=== PATIENT | female | born 1955 ===

== ENCOUNTER 2017-03-22 18:34 | Observation (INO) | payer MEDICAID ==
--- NOTE | 2017-03-22 19:01 | ED PDOC ---
HPI: Chest Pain Time Seen by Provider: 03/22/17 18:44 Chief Complaint (Nursing): Chest Pain Chief Complaint (Provider): Chest pain History Per: Patient History/Exam Limitations: no limitations Onset/Duration Of Symptoms: Days (Today) Current Symptoms Are (Timing): Still Present Additional Complaint(s): Chest pain that started suddenly on the right side 2 hrs [employer]. Dyspnea with it. Took 2 ASA at home. No weakness, numbness, tingles, leg pain, nausea, vomit, diarrhea, abd pain, back pain. No dizziness or headache. No long distance travel. No hormone tx. Past Medical History Vital Signs: Last Vital Signs Temp 97.9 F 03/22/17 18:39 Pulse 60 03/22/17 19:17 Resp 16 03/22/17 18:39 BP 130/73 03/22/17 19:17 Pulse Ox 100 03/22/17 19:39 - Medical History PMH: HTN, Hypercholesterolemia - Surgical History Surgical History: Appendectomy, (2) - Family History Family History: States: Unknown Family Hx - Living Arrangements Living Arrangements: With Family - Social History Current smoker - smoking cessation education provided: No Alcohol: None Drugs: Denies - Home Medications Home Medications: Ambulatory Orders Medication Instructions Recorded Ibuprofen [Motrin] 600 mg PO TID 7 Days tab 04/08/16 Cyclobenzaprine [Cyclobenzaprine 10 mg PO Q8 PRN #30 tab 06/30/16 HCl] Naproxen [Naprosyn] 500 mg PO BID PRN #30 tab 06/30/16 - Allergies Allergies/Adverse Reactions: Allergies Allergy/AdvReac Type Severity Reaction Status Date / Time No Known Allergies Allergy Verified 03/22/17 18:39 Review of Systems ROS Statement: Except As Marked, All Systems Reviewed And Found Negative Cardiovascular: Positive for: Chest Pain Respiratory: Positive for: Shortness of Breath Physical Exam - Reviewed Nursing Documentation Reviewed: Yes Vital Signs Reviewed: Yes - Physical Exam Appears: Positive for: Non-toxic, No Acute Distress Head Exam: Positive for: ATRAUMATIC, NORMAL INSPECTION, NORMOCEPHALIC Skin: Positive for: Normal Color, Warm, DRY Eye Exam: Positive for: EOMI, Normal appearance, PERRL ENT: Positive for: Normal ENT Inspection Neck: Positive for: Normal, Painless ROM Cardiovascular/Chest: Positive for: Regular Rate, Rhythm. Negative for: Chest Non Tender (R chest mid tender), Edema Respiratory: Positive for: CNT, Normal Breath Sounds Gastrointestinal/Abdominal: Positive for: Normal Exam, Bowel Sounds, Soft. Negative for: Tenderness Back: Positive for: Normal Inspection. Negative for: L CVA Tenderness Extremity: Positive for: Normal ROM. Negative for: Tenderness, Pedal Edema Neurologic/Psych: Positive for: Alert, Oriented - Laboratory Results Result Diagrams: 03/22/17 19:53 03/22/17 19:54 Interpretation Of Abn Labs: no acute - ECG ECG: Positive for: Interpreted By Me, Viewed By Me ECG Rhythm: Positive for: Normal QRS, Normal ST Segment, Sinus Rhythm O2 Sat by Pulse Oximetry: 100 Pulse Ox Interpretation: Normal - Radiology X-Ray: Interpreted by Me, Viewed By Me X-Ray Interpretation: No Acute Disease - Progress ED Course And Treament: 2052: Stable. Spoke with Dr. Hobbs. Will admit tele obs. Will give further orders when pt. reaches floor. Pain free currently. Disposition - Clinical Impression Clinical Impression: Chest pain - Patient ED Disposition Is Patient to be Admitted: Yes Counseled Patient/Family Regarding: Studies Performed, Diagnosis - Disposition Disposition Time: 20:54 Condition: FAIR - Pt Status Changed To: Hospital Disposition Of: Observation - POA Present On Arrival: None Core Measure Indicators: Chest Pain
[2017-03-22] MEDS ORDERED: Sodium Chloride 0.9% 500 ML IV STA (19:08)
[2017-03-22 19:56] LABS: BASO % 0.5 % (0.0-2.0); EOS # 0.1 K/uL (0.0-0.7); EOS % 1.9 % (0.0-4.0); HEMATOCRIT 36.4 % (34.0-47.0); LYMPH # 1.7 K/uL (1.0-4.3); LYMPH % 31.6 % (20.0-40.0); MEAN CELL VOLUME 87.9 fl (81.0-99.0); MEAN CORPUSCULAR HEMOGLOBIN 29.6 pg (27.0-31.0); MEAN CORPUSCULAR HGB CONC 33.7 g/dL (33.0-37.0); MEAN PLATELET VOLUME 8.9 fl (7.2-11.7); MONO # 0.6 K/uL (0.0-0.8); MONO % 11.1 % (0.0-10.0); NEUT # 2.9 K/uL (1.8-7.0); NEUT % 54.9 % (50.0-75.0); NRBC % 0.3 % (0.0-0.0); RED CELL DISTRIBUTION WIDTH 13.4 % (11.5-14.5); WHITE BLOOD COUNT 5.3 K/uL (4.8-10.8)
[2017-03-22 20:03] LABS: ALKALINE PHOSPHATASE 76 U/L (38-126); ALT/SGPT 35 U/L (9-52); AST/SGOT 28 U/L (14-36); BILIRUBIN,TOTAL 0.2 mg/dl (0.2-1.3); BLOOD UREA NITROGEN 12 mg/dl (7-17); CALCIUM 8.8 mg/dL (8.4-10.2); CARBON DIOXIDE 29 mmol/L (22-30); CHLORIDE 105 mmol/L (98-107); GFR AFRICAN-AMERICAN > 60; GLUCOSE,RANDOM 100 mg/dL (65-105); POTASSIUM 4.1 MMOL/L (3.6-5.0); SODIUM 142 mmol/l (132-148); TOTAL PROTEIN 7.9 G/DL (6.3-8.2)
[2017-03-22 20:54] LABS: PARTIAL THROMBOPLASTIN TIME 29.3 Seconds (25.6-37.1)
[2017-03-23 05:24] VITALS: RESP 18
[2017-03-23 07:01] LABS: HEMATOCRIT 35.9 % (34.0-47.0); MEAN CORPUSCULAR HEMOGLOBIN 29.4 pg (27.0-31.0); MEAN CORPUSCULAR HGB CONC 32.6 g/dL (33.0-37.0); RED CELL DISTRIBUTION WIDTH 13.4 % (11.5-14.5); WHITE BLOOD COUNT 4.8 K/uL (4.8-10.8)
[2017-03-23 07:11] LABS: ALKALINE PHOSPHATASE 73 U/L (38-126); ALT/SGPT 35 U/L (9-52); AST/SGOT 24 U/L (14-36); BILIRUBIN,TOTAL 0.3 mg/dl (0.2-1.3); BLOOD UREA NITROGEN 9 mg/dl (7-17); CALCIUM 8.7 mg/dL (8.4-10.2); CARBON DIOXIDE 29 mmol/L (22-30); CHLORIDE 107 mmol/L (98-107); CHOLESTEROL 171 mg/dL (0-199); GFR AFRICAN-AMERICAN > 60; GLUCOSE,RANDOM 84 mg/dL (65-105); POTASSIUM 3.7 MMOL/L (3.6-5.0); SODIUM 144 mmol/l (132-148); TOTAL PROTEIN 7.3 G/DL (6.3-8.2)
[2017-03-23 07:39] LABS: THYROID STIMULATING HORMONE 1.88 mIU/ML (0.46-4.68)
[2017-03-23] MEDS ORDERED: Enoxaparin 40 mg Syringe SC SCH (09:00)
--- NOTE | 2017-03-23 09:13 | CP.PCM.HP ---
History of Present Illness - History of Present Illness History of Present Illness: Patient seen and examined with Dr. 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 States she has never had pain like this before. No cardiac history. Pain at present is now shoulder/back, non radiating, worse with movement of her shoulder. No chest pain, dyspnea, abdominal pain, nausea or vomiting. PMD: Dr Syed PMH: HTN Medications:Metoprolol Allergies: NKDA Present on Admission - Present on Admission Any Indicators Present on Admission: No Review of Systems - Constitutional Constitutional: absent: Headache, Weakness - EENT Eyes: absent: Blurred Vision, Change in Vision Ears: absent: Ear Pain Nose/Mouth/Throat: absent: Nasal Congestion, Nasal Discharge - Cardiovascular Cardiovascular: absent: Chest Pain, Dyspnea, Edema, Rapid Heart Rate, Slow Heart Rate - Respiratory Respiratory: absent: Cough, Dyspnea - Gastrointestinal Gastrointestinal: absent: Abdominal Pain, Diarrhea, Nausea, Vomiting - Genitourinary Genitourinary: absent: Difficulty Urinating, Dysuria - Musculoskeletal Musculoskeletal: absent: Abnormal Gait Past Patient History - Infectious Disease Hx of Infectious Diseases: None - Past Medical History & Family History Past Medical History?: Yes - Past Social History Smoking Status: Former Smoker - CARDIAC Hx Cardiac Disorders: Yes Hx Hypercholesterolemia: Yes Hx Hypertension: Yes - PULMONARY Hx Respiratory Disorders: No - NEUROLOGICAL Hx Neurological Disorder: No - HEENT Hx HEENT Problems: No - RENAL Hx Chronic Kidney Disease: No - ENDOCRINE/METABOLIC Hx Endocrine Disorders: No - HEMATOLOGICAL/ONCOLOGICAL Hx Blood Disorders: No - INTEGUMENTARY Hx Dermatological Problems: No - MUSCULOSKELETAL/RHEUMATOLOGICAL Hx Musculoskeletal Disorders: No Hx Falls: No - GASTROINTESTINAL Hx Gastrointestinal Disorders: No - GENITOURINARY/GYNECOLOGICAL Hx Genitourinary Disorders: No - PSYCHIATRIC Hx Psychophysiologic Disorder: No Hx Substance Use: No - SURGICAL HISTORY Hx Appendectomy: Yes Hx Section: Yes (x2) - ANESTHESIA Hx Anesthesia: Yes Hx Anesthesia Reactions: No Meds Allergies/Adverse Reactions: Allergies Allergy/AdvReac Type Severity Reaction Status Date / Time No Known Allergies Allergy Verified 03/22/17 18:39 Physical Exam - Constitutional Appears: Well, No Acute Distress - Head Exam Head Exam: ATRAUMATIC, NORMAL INSPECTION, NORMOCEPHALIC - Eye Exam Eye Exam: EOMI, Normal appearance, PERRL - ENT Exam ENT Exam: Mucous Membranes Dry - Neck Exam Neck exam: Positive for: Full Rom - Respiratory Exam Respiratory Exam: Clear to Auscultation Bilateral, NORMAL BREATHING PATTERN. absent: Accessory Muscle Use, Chest Wall Tenderness, Decreased Breath Sounds, Rales, Wheezes, Respiratory Distress - Cardiovascular Exam Cardiovascular Exam: REGULAR RHYTHM, +S1, +S2. absent: Bradycardia, Tachycardia - GI/Abdominal Exam GI & Abdominal Exam: Normal Bowel Sounds, Soft. absent: Diminished Bowel Sounds , Distended, Guarding, Tenderness - Extremities Exam Extremities exam: Negative for: pedal edema Additional comments: right shoulder non tender, full ROM - Back Exam Back exam: muscle spasm, NORMAL INSPECTION Additional comments: right upper back tenderness to palpation - Psychiatric Exam Psychiatric exam: Normal Affect, Normal Mood - Skin Skin Exam: Dry, Intact, Normal Color, Warm Results - Vital Signs Recent Vital Signs: Last Vital Signs Temp 97.7 F 03/23/17 08:24 Pulse 62 03/23/17 08:42 Resp 18 03/23/17 08:24 BP 142/79 03/23/17 08:42 Pulse Ox 100 03/23/17 08:24 - Labs Result Diagrams: 03/23/17 06:00 03/23/17 06:00 Labs: Laboratory Results - last 24 hr 03/22/17 03/22/17 03/22/17 19:53 19:54 20:15 WBC 5.3 RBC 4.14 Hgb 12.2 Hct 36.4 MCV 87.9 MCH 29.6 MCHC 33.7 RDW 13.4 Plt Count 228 MPV 8.9 Neut % (Auto) 54.9 Lymph % (Auto) 31.6 [place] % (Auto) 11.1 H Eos % (Auto) 1.9 Baso % (Auto) 0.5 Neut # 2.9 Lymph # 1.7 [place] # 0.6 Eos # 0.1 Baso # 0.0 PT 11.6 INR 1.0 APTT 29.3 Sodium 142 Potassium 4.1 Chloride 105 Carbon Dioxide 29 Anion Gap 12 BUN 12 Creatinine 0.8 Est GFR ( Amer) > 60 Est GFR (Non-Af Amer) > 60 Random Glucose 100 Calcium 8.8 Total Bilirubin 0.2 AST 28 ALT 35 Alkaline Phosphatase 76 Troponin I < 0.0120 Total Protein 7.9 Albumin 4.0 Globulin 3.9 Albumin/Globulin Ratio 1.0 Triglycerides Cholesterol LDL Cholesterol Direct HDL Cholesterol Vitamin B12 TSH 3rd Generation 03/23/17 03/23/17 06:00 06:00 WBC 4.8 RBC 3.99 Hgb 11.7 L Hct 35.9 MCV 90.0 D MCH 29.4 MCHC 32.6 L RDW 13.4 Plt Count 222 MPV Neut % (Auto) Lymph % (Auto) [place] % (Auto) Eos % (Auto) Baso % (Auto) Neut # Lymph # [place] # Eos # Baso # PT INR APTT Sodium 144 Potassium 3.7 Chloride 107 Carbon Dioxide 29 Anion Gap 12 BUN 9 Creatinine 0.8 Est GFR ( Amer) > 60 Est GFR (Non-Af Amer) > 60 Random Glucose 84 Calcium 8.7 Total Bilirubin 0.3 AST 24 ALT 35 Alkaline Phosphatase 73 Troponin I < 0.0120 Total Protein 7.3 Albumin 3.7 Globulin 3.7 Albumin/Globulin Ratio 1.0 Triglycerides 109 Cholesterol 171 LDL Cholesterol Direct 83 HDL Cholesterol 52 Vitamin B12 291 TSH 3rd Generation 1.88 Assessment & Plan (1) Chest pain Assessment and Plan: 61 year old female with PMH of htn admitted for chest pain rule out ACS. Troponins have been negative, EKG is WNL. Pain is improved, likely due to muscle spasm as pain has localized to her back. Awaiting cardiology evaluation. case d/w Dr. Hobbs Status: Acute (2) Back pain Status: Acute (3) HTN (hypertension) Assessment and Plan: well controlled with home medications Status: Chronic
--- NOTE | 2017-03-23 09:30 | RAD ---
HISTORY: dyspnea COMPARISON: 06/28/2015 FINDINGS: LUNGS: No active pulmonary disease. PLEURA: No significant pleural effusion identified, no pneumothorax apparent. CARDIOVASCULAR: No CHF. Heart is unchanged in size. Aorta is also stable. OSSEOUS STRUCTURES: No significant abnormalities. Mild scoliosis is noted. VISUALIZED UPPER ABDOMEN: Normal. OTHER FINDINGS: None. IMPRESSION: No active disease.
--- NOTE | 2017-03-23 10:59 | CARD ---
APPROVED REPORT EKG Measurement Heart [id number] <Conclusion> Normal sinus rhythm Normal ECG
--- NOTE | 2017-03-23 11:56 | CP.PCM.CON ---
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 States she has never had pain like this before. No cardiac history. Pain at present is now @ right shoulder non radiating, feels much better than when she came in, worse with movement of her shoulder. No chest pain, dyspnea, abdominal pain, nausea or vomiting. Pain is reproducible with palpation EKG: normal Troponin: neg PMH: HTN Medications: Metoprolol Past Patient History - Infectious Disease Hx of Infectious Diseases: None - Past Medical History & Family History Past Medical History?: Yes - Past Social History Smoking Status: Former Smoker - CARDIAC Hx Cardiac Disorders: Yes Hx Hypercholesterolemia: Yes Hx Hypertension: Yes - PULMONARY Hx Respiratory Disorders: No - NEUROLOGICAL Hx Neurological Disorder: No - HEENT Hx HEENT Problems: No - RENAL Hx Chronic Kidney Disease: No - ENDOCRINE/METABOLIC Hx Endocrine Disorders: No - HEMATOLOGICAL/ONCOLOGICAL Hx Blood Disorders: No - INTEGUMENTARY Hx Dermatological Problems: No - MUSCULOSKELETAL/RHEUMATOLOGICAL Hx Musculoskeletal Disorders: No Hx Falls: No - GASTROINTESTINAL Hx Gastrointestinal Disorders: No - GENITOURINARY/GYNECOLOGICAL Hx Genitourinary Disorders: No - PSYCHIATRIC Hx Psychophysiologic Disorder: No Hx Substance Use: No - SURGICAL HISTORY Hx Appendectomy: Yes Hx Section: Yes (x2) - ANESTHESIA Hx Anesthesia: Yes Hx Anesthesia Reactions: No Meds Allergies/Adverse Reactions: Allergies Allergy/AdvReac Type Severity Reaction Status Date / Time No Known Allergies Allergy Verified 03/22/17 18:39 - Medications Medications: Current Medications Acetaminophen (Tylenol 325mg Tab) 650 mg PO Q4 PRN PRN Reason: Pain, Mild (1-3) Last Admin: 03/23/17 10:23 Dose: 650 mg Aspirin (Ecotrin) 81 mg PO DAILY [facility] Last Admin: 03/23/17 08:40 Dose: 81 mg Cyclobenzaprine HCl (Flexeril) 5 mg PO TID PRN PRN Reason: Muscle spasm Enoxaparin Sodium (Lovenox) 40 mg SC DAILY [facility] PRN Reason: Protocol Last Admin: 03/23/17 08:40 Dose: 40 mg Metoprolol Tartrate (Lopressor) 50 mg PO DAILY [facility] Last Admin: 03/23/17 08:42 Dose: 50 mg Physical Exam - Constitutional Appears: Well - Head Exam Head Exam: ATRAUMATIC, NORMAL INSPECTION, NORMOCEPHALIC - Eye Exam Eye Exam: EOMI, Normal appearance, PERRL - ENT Exam ENT Exam: Mucous Membranes Moist, Normal Exam - Neck Exam Neck exam: Positive for: Normal Inspection - Respiratory Exam Respiratory Exam: Clear to Auscultation Bilateral, NORMAL BREATHING PATTERN - Cardiovascular Exam Cardiovascular Exam: REGULAR RHYTHM Results - Vital Signs Recent Vital Signs: Last Vital Signs Temp 97.7 F 03/23/17 08:24 Pulse 66 03/23/17 09:00 Resp 18 03/23/17 08:24 BP 142/79 03/23/17 08:42 Pulse Ox 100 03/23/17 08:24 - Labs Result Diagrams: 03/23/17 06:00 03/23/17 06:00 Labs: Laboratory Results - last 24 hr 03/22/17 03/22/17 03/22/17 19:53 19:54 20:15 WBC 5.3 RBC 4.14 Hgb 12.2 Hct 36.4 MCV 87.9 MCH 29.6 MCHC 33.7 RDW 13.4 Plt Count 228 MPV 8.9 Neut % (Auto) 54.9 Lymph % (Auto) 31.6 [place] % (Auto) 11.1 H Eos % (Auto) 1.9 Baso % (Auto) 0.5 Neut # 2.9 Lymph # 1.7 [place] # 0.6 Eos # 0.1 Baso # 0.0 PT 11.6 INR 1.0 APTT 29.3 Sodium 142 Potassium 4.1 Chloride 105 Carbon Dioxide 29 Anion Gap 12 BUN 12 Creatinine 0.8 Est GFR ( Amer) > 60 Est GFR (Non-Af Amer) > 60 Random Glucose 100 Calcium 8.8 Total Bilirubin 0.2 AST 28 ALT 35 Alkaline Phosphatase 76 Troponin I < 0.0120 Total Protein 7.9 Albumin 4.0 Globulin 3.9 Albumin/Globulin Ratio 1.0 Triglycerides Cholesterol LDL Cholesterol Direct HDL Cholesterol Vitamin B12 TSH 3rd Generation 03/23/17 03/23/17 06:00 06:00 WBC 4.8 RBC 3.99 Hgb 11.7 L Hct 35.9 MCV 90.0 D MCH 29.4 MCHC 32.6 L RDW 13.4 Plt Count 222 MPV Neut % (Auto) Lymph % (Auto) [place] % (Auto) Eos % (Auto) Baso % (Auto) Neut # Lymph # [place] # Eos # Baso # PT INR APTT Sodium 144 Potassium 3.7 Chloride 107 Carbon Dioxide 29 Anion Gap 12 BUN 9 Creatinine 0.8 Est GFR ( Amer) > 60 Est GFR (Non-Af Amer) > 60 Random Glucose 84 Calcium 8.7 Total Bilirubin 0.3 AST 24 ALT 35 Alkaline Phosphatase 73 Troponin I < 0.0120 Total Protein 7.3 Albumin 3.7 Globulin 3.7 Albumin/Globulin Ratio 1.0 Triglycerides 109 Cholesterol 171 LDL Cholesterol Direct 83 HDL Cholesterol 52 Vitamin B12 291 TSH 3rd Generation 1.88 Assessment & Plan (1) Right shoulder pain Assessment and Plan: Pain is not cardiac pt may be discharged Status: Acute (2) HTN (hypertension) Status: Chronic
[2017-03-23 12:39] VITALS: BP 117/74; PULSE 54; TEMP 98; O2SAT 98
== END 2017-03-23 14:04 | disposition home or self-care (01) ==
LOC: H.ER 18:34 → H.ERHOLD 20:54 → H.TEL 22:46
PROVIDERS: ADMIT Internal Medicine; ATTEND Internal Medicine
DX: M25.511 Pain in right shoulder (principal); I10 Essential (primary) hypertension; E78.00 Pure hypercholesterolemia, unspecified; Z87.891 Personal history of nicotine dependence
CPT/HCPCS: 36415; 71010; 80053; 80061; 82607; 84443; 84484; 85025; 85027; 85610; 85730; 93005; 99283; G0378; J1650; J7040

== ENCOUNTER 2018-03-15 12:10 | Emergency (ER) | payer MEDICAID ==
[2018-03-15] MEDS ORDERED: Sodium Chloride 0.9% 1,000 ML IV STA (12:43)
--- NOTE | 2018-03-15 13:18 | RAD ---
Date of service: 03/15/2018 HISTORY: Chest pain COMPARISON: 03/22/2017. TECHNIQUE: Chest PA and lateral FINDINGS: LINES AND TUBES: None. LUNG AND PLEURA: The lungs are well inflated and clear. No pleural effusion or pneumothorax. HEART AND MEDIASTINUM: The heart is not enlarged. No aortic atherosclerotic calcification present. The hilar and mediastinal contours are within normal limits. SKELETAL STRUCTURES: The bony structures are within normal limits for the patient's age. VISUALIZED UPPER ABDOMEN: Normal. OTHER FINDINGS: None. IMPRESSION: No active pulmonary disease.
[2018-03-15 13:36] LABS: BASO % 0.9 % (0.0-2.0); EOS # 0.1 K/uL (0.0-0.7); EOS % 1.8 % (0.0-4.0); HEMOGLOBIN 12.6 g/dL (12.0-16.0); LYMPH # 1.2 K/uL (1.0-4.3); LYMPH % 21.8 % (20.0-40.0); MEAN CELL VOLUME 90.4 fl (81.0-99.0); MEAN CORPUSCULAR HEMOGLOBIN 29.8 pg (27.0-31.0); MEAN PLATELET VOLUME 9.2 fl (7.2-11.7); MONO # 0.5 K/uL (0.0-0.8); MONO % 8.8 % (0.0-10.0); NEUT # 3.7 K/uL (1.8-7.0); NEUT % 66.7 % (50.0-75.0); NRBC % 0.1 % (0.0-0.0); RBC 4.22 Mil/uL (3.80-5.20); RED CELL DISTRIBUTION WIDTH 13.3 % (11.5-14.5); WHITE BLOOD COUNT 5.6 K/uL (4.8-10.8)
[2018-03-15 13:43] LABS: ALBUMIN 4.3 g/dL (3.5-5.0); ALT/SGPT 29 U/L (9-52); AST/SGOT 25 U/L (14-36); BLOOD UREA NITROGEN 12 mg/dl (7-17); CALCIUM 9.7 mg/dL (8.4-10.2); GFR NON-AFRICAN AMERICAN > 60
--- NOTE | 2018-03-15 18:08 | ED PDOC ---
HPI: Headache Time Seen by Provider: 03/15/18 12:19 Chief Complaint (Nursing): Headache Chief Complaint (Provider): Upper back pain History Per: Patient History/Exam Limitations: no limitations Additional Complaint(s): 62 y/o female with history of HTN presents to the ED complaining of pain to her upper back, onset since x2 days ago. Patient states that the pain radiates to her shoulders and arms bilaterally and she has an associated mild headache. She states that pain in worsened with movement and that she has had similar pain in the past. She denies trauma, weakness, numbness, chest pain, or shortness of breath. Past Medical History Reviewed: Historical Data, Nursing Documentation, Vital Signs Vital Signs: Last Vital Signs Temp 98.5 F 03/15/18 12:13 Pulse 71 03/15/18 12:13 Resp 16 03/15/18 12:13 BP 166/93 H 03/15/18 12:13 Pulse Ox 99 03/15/18 12:13 - Medical History PMH: HTN, Hypercholesterolemia Denies: Chronic Kidney Disease - Surgical History Surgical History: Appendectomy, (2) - Family History Family History: States: Unknown Family Hx - Social History Current smoker - smoking cessation education provided: No - Home Medications Home Medications: Ambulatory Orders Medication Instructions Recorded Metoprolol Tartrate [Lopressor] 25 mg PO DAILY 03/22/17 Cyclobenzaprine [Cyclobenzaprine 10 mg PO Q8 PRN #9 tab 03/15/18 HCl] Ibuprofen [Motrin Tab] 600 mg PO Q6 PRN #15 tab 03/15/18 - Allergies Allergies/Adverse Reactions: Allergies Allergy/AdvReac Type Severity Reaction Status Date / Time No Known Allergies Allergy Verified 03/22/17 18:39 Review of Systems ROS Statement: Except As Marked, All Systems Reviewed And Found Negative Cardiovascular: Negative for: Chest Pain Respiratory: Negative for: Shortness of Breath Musculoskeletal: Positive for: Shoulder Pain (bilaterally), Back Pain Neurological: Positive for: Headache. Negative for: Weakness, Numbness Physical Exam - Reviewed Nursing Documentation Reviewed: Yes Vital Signs Reviewed: Yes - Physical Exam Appears: Positive for: Well, Non-toxic, No Acute Distress Head Exam: Positive for: ATRAUMATIC, NORMAL INSPECTION, NORMOCEPHALIC Skin: Positive for: Normal Color, Warm, DRY Eye Exam: Positive for: EOMI, Normal appearance, PERRL Neck: Positive for: Normal, Painless ROM Cardiovascular/Chest: Positive for: Regular Rate, Rhythm. Negative for: Murmur Respiratory: Positive for: Normal Breath Sounds. Negative for: Respiratory Distress Gastrointestinal/Abdominal: Positive for: Normal Exam, Soft. Negative for: Tenderness Back: Negative for: Normal Inspection (Hypertonicity to upper thoracic region) Extremity: Positive for: Normal ROM. 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 Negative for: Motor/Sensory Deficits - Laboratory Results Result Diagrams: 03/15/18 13:20 03/15/18 13:20 - ECG O2 Sat by Pulse Oximetry: 99 (RA) Pulse Ox Interpretation: Normal Medical Decision Making Medical Decision Making: Time: 12:43 Initial Impression: back pain with mild headache Initial Plan: * CMP * Troponin * CBC w/ diff * CXR * IV Fluids * Reglan * Toradol 17:25 Blood work, CXR and labs are all unremarkable. Patient was given Reglan and Toradol with resolution of symptoms. 17:25 Patient's past charts were reviewed. She was admitted a year ago for similiar symptoms and a chief controller saw her who determined it was non-cardiac. 17:30 Patient will be discharged with Motrin and Flexeril. Scribe Attestation: Documented by Leon Cr, acting as a scribe for Emanuel Hunt MD. Provider Scribe Attestation: All medical record entries made by the Scribe were at my direction and personally dictated by me. I have reviewed the chart and agree that the record accurately reflects my personal performance of the history, physical exam, medical decision making, and the department course for this patient. I have also personally directed, reviewed, and agree with the discharge Disposition - Clinical Impression Clinical Impression: Headache, Back pain - Disposition Referrals: Aileen Groves MD [Family Provider] - Disposition Time: 17:30 Condition: STABLE Additional Instructions: Return to ER for any worse or new symptoms. Prescriptions: Cyclobenzaprine [Cyclobenzaprine HCl] 10 mg PO Q8 PRN #9 tab PRN Reason: Muscle Spasm Ibuprofen [Motrin Tab] 600 mg PO Q6 PRN #15 tab PRN Reason: Pain, Moderate (4-7) Instructions: Upper Back Pain, Headache, Adult (DC) Forms: [employer] (Sri Lankan) Print Language: TRINIDADIAN
[2018-03-15 18:30] VITALS: BP 164/84; PULSE 74; RESP 18; TEMP 98.2; O2SAT 100
== END 2018-03-15 18:25 | disposition home or self-care (01) ==
LOC: H.ER 12:10
DX: M54.9 Dorsalgia, unspecified (principal); R51 Headache
CPT/HCPCS: 71046; 80053; 84484; 85025; 96374; 96375; 99285; J1885; J2765; J7030

== ENCOUNTER 2018-08-09 19:11 | Emergency (ER) | payer MEDICAID ==
[2018-08-09 19:30] VITALS: RESP 16
[2018-08-09] MEDS ORDERED: Sodium Chloride 0.9% 1,000 ML IV STA (21:15)
--- NOTE | 2018-08-09 21:17 | ED PDOC ---
HPI: Abdomen Time Seen by Provider: 08/09/18 21:00 Chief Complaint (Nursing): Abdominal Pain Chief Complaint (Provider): abdominal pain History Per: Patient, Family (son) History/Exam Limitations: no limitations Onset/Duration Of Symptoms: Days (3), Waxing/Waning Current Symptoms Are (Timing): Still Present Location Of Pain/Discomfort: Epigastric Quality Of Discomfort: "Pain" Associated Symptoms: Nausea Last Bowel Movement: Today Additional Complaint(s): 63 y/o female presents for evaluation of upper abdominal pain x 3 days. Associated nausea. Denies fever, vomiting, chest pain, shortness of breath, palpitations, urinary symptoms, changes in bowel movements. No medications taken for relief thus far Past Medical History Reviewed: Historical Data, Nursing Documentation, Vital Signs Vital Signs: Last Vital Signs Temp 97.9 F 08/09/18 19:27 Pulse 67 08/09/18 19:27 Resp 16 08/09/18 19:27 BP 125/78 08/09/18 19:27 Pulse Ox 98 08/09/18 19:27 - Medical History PMH: HTN, Hypercholesterolemia Denies: Chronic Kidney Disease - Surgical History Surgical History: Appendectomy, (2) - Family History Family History: States: Unknown Family Hx - Home Medications Home Medications: Ambulatory Orders Medication Instructions Recorded Metoprolol Tartrate [Lopressor] 25 mg PO DAILY 03/22/17 Cyclobenzaprine [Cyclobenzaprine 10 mg PO Q8 PRN #9 tab 03/15/18 HCl] Ibuprofen [Motrin Tab] 600 mg PO Q6 PRN #15 tab 03/15/18 Famotidine [Pepcid] 20 mg PO BID #20 tab 08/10/18 Ondansetron ODT [Zofran ODT] 4 mg PO Q8 PRN #10 odt 08/10/18 - Allergies Allergies/Adverse Reactions: Allergies Allergy/AdvReac Type Severity Reaction Status Date / Time No Known Allergies Allergy Verified 03/22/17 18:39 Review of Systems ROS Statement: Except As Marked, All Systems Reviewed And Found Negative Gastrointestinal: Positive for: Nausea, Abdominal Pain Physical Exam - Reviewed Nursing Documentation Reviewed: Yes Vital Signs Reviewed: Yes - Physical Exam Appears: Positive for: Well, Non-toxic, No Acute Distress Head Exam: Positive for: ATRAUMATIC, NORMAL INSPECTION, NORMOCEPHALIC Skin: Positive for: Normal Color Eye Exam: Positive for: Normal appearance ENT: Positive for: Normal ENT Inspection Cardiovascular/Chest: Positive for: Regular Rate, Rhythm Respiratory: Positive for: Normal Breath Sounds Gastrointestinal/Abdominal: Positive for: Bowel Sounds, Soft, Tenderness (epigstric, LUQ) Back: Positive for: Normal Inspection Extremity: Positive for: Normal ROM Neurological/Psych: Positive for: Awake, Alert, Oriented (x3) - Laboratory Results Result Diagrams: 08/09/18 22:04 08/09/18 22:04 - ECG ECG: Positive for: Viewed By Me (reviewed by ED attending) ECG Rhythm: Positive for: Sinus Rhythm O2 Sat by Pulse Oximetry: 98 - Progress ED Course And Treament: -cbc -cmp -lipase -urinalysis -IV NS bolus -IV pepcid -IV zofran On re-eval, patient states she is feeling much better and would liek to be discharged. Patient educated on findings, discharged with rx Pepcid, Zofran Advised follow up PMD within 2-3 days. Diet modification Return precautions given Disposition - Clinical Impression Clinical Impression: Abdominal pain - Patient ED Disposition Is Patient to be Admitted: No Counseled Patient/Family Regarding: Studies Performed, Diagnosis, Need For Foll owup, Rx Given - Disposition Disposition: Routine/Home Disposition Time: 00:52 Condition: IMPROVED Prescriptions: Famotidine [Pepcid] 20 mg PO BID #20 tab Ondansetron ODT [Zofran ODT] 4 mg PO Q8 PRN #10 odt PRN Reason: Nausea/Vomiting Instructions: Gastritis, Acute Abdomen (Belly Pain) Forms: [employer] (Belizean) Print Language: SERBIAN
[2018-08-09 22:13] LABS: BASO % 0.5 % (0.0-2.0); EOS # 0.1 K/uL (0.0-0.7); EOS % 0.9 % (0.0-4.0); HEMOGLOBIN 12.7 g/dL (12.0-16.0); LYMPH # 1.6 K/uL (1.0-4.3); LYMPH % 24.1 % (20.0-40.0); MEAN CELL VOLUME 89.5 fl (81.0-99.0); MEAN CORPUSCULAR HEMOGLOBIN 29.6 pg (27.0-31.0); MEAN CORPUSCULAR HGB CONC 33.1 g/dL (33.0-37.0); MEAN PLATELET VOLUME 9.1 fl (7.2-11.7); MONO # 0.6 K/uL (0.0-0.8); MONO % 9.7 % (0.0-10.0); NEUT # 4.3 K/uL (1.8-7.0); NEUT % 64.8 % (50.0-75.0); NRBC % 0.2 % (0.0-0.0); RBC 4.28 Mil/uL (3.80-5.20); RED CELL DISTRIBUTION WIDTH 13.6 % (11.5-14.5); WHITE BLOOD COUNT 6.6 K/uL (4.8-10.8)
[2018-08-09 22:38] LABS: ALBUMIN 4.4 g/dL (3.5-5.0); ALT/SGPT 25 U/L (9-52); AST/SGOT 29 U/L (14-36); BLOOD UREA NITROGEN 19 mg/dl (7-17); CALCIUM 9.6 mg/dL (8.4-10.2); GFR NON-AFRICAN AMERICAN > 60; LIPASE 158 U/L (23-300)
[2018-08-10 01:36] VITALS: BP 130/71; PULSE 61; TEMP 98.1; O2SAT 100
--- NOTE | 2018-08-10 07:13 | CARD ---
APPROVED REPORT Date of service: 08/09/2018 EKG Measurement Heart [id number] <Conclusion> Normal sinus rhythm Normal ECG
== END 2018-08-10 01:05 | disposition home or self-care (01) ==
LOC: H.ER 19:11
DX: R10.13 Epigastric pain (principal); E78.00 Pure hypercholesterolemia, unspecified; I10 Essential (primary) hypertension
CPT/HCPCS: 80053; 81025; 83690; 85025; 93005; 96361; 96374; 96375; 99284; J2405; J7030